=== PATIENT | female | born 1975 | race African-American/Black ===

== ENCOUNTER 2016-10-19 18:05 | Emergency (ER) | payer MEDICAID ==
[2016-10-19] MEDS ORDERED: IBUPROFEN 600 MG TABLET PO STA (20:29)
[2016-10-19] MEDS ORDERED: CLINDAMYCIN 150 MG CAPSULE PO STA (20:29)
[2016-10-19] MEDS ORDERED: CLINDAMYCIN 150 MG CAPSULE PO ONE (20:36)
[2016-10-19] MEDS ORDERED: IBUPROFEN 600 MG TABLET PO ONE (20:37)
== END 2016-10-19 20:43 | disposition home or self-care (01) ==
DX: N76.4 Abscess of vulva (principal); F17.200 Nicotine dependence, unspecified, uncomplicated
CPT/HCPCS: 99283; A9270

== ENCOUNTER 2017-05-11 12:02 | Emergency (ER) | payer MEDICAID ==
[2017-05-11 12:10] VITALS: BP 126/79
--- NOTE | 2017-05-11 12:48 | ED Physician Documentation ---
PD HPI HEENT - Stated complaint Stated Complaint: FACE/EAR PX, SORE THROAT - Chief complaint Chief Complaint: Heent - History obtained from History obtained from: Patient - History of Present Illness Timing - onset: How many days ago (5) Timing - duration: Days (5) Timing - details: Gradual onset, Still present, Waxing and waning Location: Left ear, Tooth Improves: Medication Worsens: Swalllowing Associated symptoms: Congestion, Swollen nodes, Cough (smokers normal) Similar symptoms before: Diagnosis (bad teeth, ear infection) Recently seen: Not recently seen - Additional information Additional information: 42-year-old female has been having some difficulty with pain in her left ear and her teeth in the front. In addition she has a cold sore that is bothering her a lot over the past 3 days. She has had this problem with her teeth for quite some time and has an appointment to see a dentist at the end of June. Review of Systems Constitutional: reports: Myalgias, Fatigue. denies: Fever, Chills Eyes: denies: Decreased vision Ears: reports: Ear pain Nose: reports: Congestion Throat: reports: Dental pain / toothache, Oral lesions / sores, Sore throat Cardiac: denies: Chest pain / pressure, Palpitations Respiratory: reports: Cough (Normal smoker's cough). denies: Dyspnea GI: denies: Abdominal Pain, Nausea, Vomiting : denies: Dysuria, Frequency Skin: denies: Rash Musculoskeletal: denies: Neck pain, Back pain PD PAST MEDICAL HISTORY - Past Medical History Past Medical History: Yes Other Past Medical History: chronic tonsil infections - Past Surgical History Past Surgical History: No - Present Medications Home Medications: Ambulatory Orders Medication Instructions Recorded Confirmed Ibuprofen [Motrin] 600 mg PO Q6H PRN #20 tab 10/19/16 05/11/17 Acyclovir 800 mg PO 5XD #35 tablet 05/11/17 Clindamycin [Cleocin] 300 mg PO Q6H #28 capsule 05/11/17 - Allergies Allergies/Adverse Reactions: Allergies Allergy/AdvReac Type Severity Reaction Status Date / Time No Known Drug Allergies Allergy Verified 05/11/17 12:42 - Social History Does the pt smoke?: Yes Smoking Status: Current every day smoker Does the pt drink ETOH?: No Does the pt have substance abuse?: No - Immunizations Immunizations are current?: No Immunizations: TDAP >10years/unknown - POLST Patient has POLST: No PD ED PE NORMAL - Vitals Vital signs reviewed: Yes (Normal) - General General: Alert and oriented X 3, No acute distress - HEENT HEENT: Atraumatic, PERRL, EOMI, Ears normal, Moist mucous membranes, Pharynx benign, Other (There is extensive decay and gingival inflammation to the lower front teeth. The area is tender. There is vesiculation on the lower lip just to the right of midline.) - Neck Neck: Supple, no meningeal sign, No bony TTP - Cardiac Cardiac: RRR, No murmur - Respiratory Respiratory: No respiratory distress, Clear bilaterally - Abdomen Abdomen: Soft, Non tender - Derm Derm: Normal color, Warm and dry - Extremities Extremities: No deformity, No edema - Neuro Neuro: No motor deficit, No sensory deficit - Psych Psych: Normal mood, Normal affect Results - Vitals Vitals: Vital Signs - 24 hr 05/11/17 12:07 Temperature 36.4 C L Heart Rate 99 Respiratory 18 Rate Blood Pressure 126/79 O2 Saturation 98 Oxygen O2 Source Room air PD MEDICAL DECISION MAKING - ED course Complexity details: reviewed old records, re-evaluated patient, considered differential, d/w patient ED course: 42-year-old female with ear pain has normal-appearing TMs and she does have extensive decay on the front lower teeth I suspect she has pain in her as a referred pain. 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 Departure - Departure Disposition: 01 Home, Self Care Clinical Impression: Pain due to dental caries, HSV-1 (herpes simplex virus 1) infection Condition: Stable Instructions: ED Tooth Pain, ED Herpes Simplex Virus Type 1 Follow-Up: [facility] [Provider Group] Prescriptions: Acyclovir 800 mg PO 5XD #35 tablet Clindamycin [Cleocin] 300 mg PO Q6H #28 capsule
== END 2017-05-11 13:00 | disposition home or self-care (01) ==
LOC: ED 12:02
DX: K02.9 Dental caries, unspecified (principal); B00.89 Other herpesviral infection; F17.200 Nicotine dependence, unspecified, uncomplicated
CPT/HCPCS: 99283

== ENCOUNTER 2018-02-28 08:00 | Outpatient (CLI) | payer MEDICAID | END 2018-02-28 08:01 | disposition home or self-care (01) | LOC: LAB.R 08:00 | PROVIDERS: ATTEND Emergency Medicine | DX: N89.9 Noninflammatory disorder of vagina, unspecified (principal) | CPT/HCPCS: 81599; 87070; 87081; 87491; 87591 ==

== ENCOUNTER 2018-06-13 15:13 | Emergency (ER) | payer MEDICAID ==
[2018-06-13 15:21] VITALS: BP 123/76
--- NOTE | 2018-06-13 16:36 | ED Physician Documentation ---
History of Present Illness - Stated complaint Stated Complaint: MOUTH PX - Chief complaint Chief Complaint: Heent - Additonal information Additional information: hx from pt 43 f dental pain X months upper pulled at [facility] fevers denies preg Review of Systems Constitutional: reports: Fever Throat: reports: Dental pain / toothache : denies: Now EGA PD PAST MEDICAL HISTORY - Past Surgical History Past Surgical History: No - Present Medications Home Medications: Ambulatory Orders Medication Instructions Recorded Confirmed Ibuprofen [Motrin] 600 mg PO Q6H PRN #20 tab 10/19/16 05/11/17 Amoxicillin 500 mg PO Q8H #30 capsule 06/13/18 Ibuprofen [Motrin] 400 mg PO Q6H PRN #30 tablet 06/13/18 - Allergies Allergies/Adverse Reactions: Allergies Allergy/AdvReac Type Severity Reaction Status Date / Time No Known Drug Allergies Allergy Verified 06/13/18 15:21 - Social History Does the pt smoke?: Yes Smoking Status: Current every day smoker Does the pt drink ETOH?: No Does the pt have substance abuse?: No - Immunizations Immunizations are current?: No Immunizations: TDAP >10years/unknown - POLST Patient has POLST: No PD ED PE NORMAL - Vitals Vital signs reviewed: Yes - HEENT HEENT: Moist mucous membranes. No: Dentition benign (severe decay espeially lower incisors, single upper tooth decayed to gun line, TTP, no trismus or ludwigs, ant adenopathy) - Cardiac Cardiac: RRR, No murmur - Respiratory Respiratory: Clear bilaterally Results - Vitals Vitals: Vital Signs - 24 hr 06/13/18 15:19 Temperature 36.8 C Heart Rate 90 Respiratory 15 Rate Blood Pressure 123/76 O2 Saturation 100 Oxygen O2 Source Room air PD MEDICAL DECISION MAKING - Sepsis Event Vital Signs: Vital Signs - 24 hr 06/13/18 15:19 Temperature 36.8 C Heart Rate 90 Respiratory 15 Rate Blood Pressure 123/76 O2 Saturation 100 Oxygen O2 Source Room air Departure - Departure Disposition: 01 Home, Self Care Clinical Impression: Dental infection Condition: Good Instructions: ED Abscess Dental Prescriptions: Amoxicillin 500 mg PO Q8H #30 capsule Ibuprofen [Motrin] 400 mg PO Q6H PRN #30 tablet PRN Reason: Pain Comments: Please call [facility] in [place] for follow up Return if worse
[2018-06-13] MEDS ORDERED: AMOX/CLAV 875 MG/125 MG TABLET PO STA (17:05)
== END 2018-06-13 17:13 | disposition home or self-care (01) ==
LOC: ED 15:13
DX: K04.7 Periapical abscess without sinus (principal); F17.200 Nicotine dependence, unspecified, uncomplicated
CPT/HCPCS: 99283; A9270

== ENCOUNTER 2018-10-22 17:21 | Emergency (ER) | payer MEDICAID ==
[2018-10-22 17:27] VITALS: BP 141/91
[2018-10-22 17:53] LABS: BILIRUBIN,URINE NEGATIVE (NEGATIVE); GLUCOSE, URINE (UA) NEGATIVE (NEGATIVE); KETONES,URINE (UA) NEGATIVE (NEGATIVE); LEUKOCYTE ESTERASE, URINE NEGATIVE (NEGATIVE); NITRITE,URINE NEGATIVE (NEGATIVE); OCCULT BLOOD,URINE MODERATE (NEGATIVE); PROTEIN,URINE NEGATIVE (NEGATIVE); UROBILINOGEN,URINE 1 (NORMAL) E.U./dL (NORMAL)
[2018-10-22 17:55] LABS: CLARITY,URINE HAZY (CLEAR); HCG UR QUAL NEGATIVE
[2018-10-22 18:10] LABS: BACTERIA,URINE None Seen /HPF (None Seen); RBC,URINE 0-5 /HPF (0-5); SQUAMOUS EPITHELIAL CELL,UR MANY Squamous (<= Few)
== END 2018-10-22 18:55 | disposition left against medical advice (07) ==
LOC: ED 17:21
DX: N89.8 Other specified noninflammatory disorders of vagina (principal); Z53.21 Procedure and treatment not carried out due to patient leaving prior to being seen by health care provider
CPT/HCPCS: 81001; 81003; 81025; 87086; 87491; 87591; 99282

== ENCOUNTER 2023-12-27 05:17 | Outpatient (CLI) | payer MEDICAID | END 2023-12-27 23:59 | disposition short-term general hospital (02) | LOC: EMS 05:17 | DX: S61.401A Unspecified open wound of right hand, initial encounter (principal); W50.4XXA Accidental scratch by another person, initial encounter | CPT/HCPCS: A0425; A0429; A0999 ==